=== PATIENT | female | born 1960 | race Hispanic/Latino ===

== ENCOUNTER 2018-02-01 02:55 | Observation (INO) | payer BC, OTHER ==
[2018-02-01 04:20] LABS: Absolute Lymphocytes (CBC) 1.7 K/uL (0.7-4.9); Absolute Monocytes 0.5 K/uL (0.1-1.3); Absolute Neutrophil 4.6 K/uL (1.8-8.0); Basophils % 0.6 % (0-1.3); Eosinophils % 2.9 % (0-4.4); Hematocrit 36.1 % (36.0-45.0); Lymphocytes % 24.5 % (15.3-44.8); MCH 30.2 pg (27.0-35.0); MCV 91.5 fL (80-100); MPV 7.6 fL (7.6-11.3); Monocytes % 7.5 % (3.3-12.3); RBC Red Blood Cell Count 3.94 M/uL (3.86-4.86)
[2018-02-01 04:48] LABS: Bicarbonate 26 mEq/L (21-31); Glucose Level 156 mg/dL (65-120); Lipase 44 U/L (22-51); Potassium 3.6 mEq/L (3.6-5.0); Sodium Level 136 mEq/L (135-145)
[2018-02-01 04:54] LABS: ALT/SGPT 19 IU/L (10-60); AST/SGOT 18 IU/L (10-42); Albumin 4.1 g/dL (3.2-5.5); Alkaline Phosphatase 67 IU/L (42-121); BUN Blood Urea Nitrogen 22 mg/dL (6-20); Bilirubin Direct 0.1 mg/dL (0-0.2); Bilirubin Total 0.5 mg/dL (0.3-1.2); Protein, Total 7.2 g/dL (6.0-8.3)
[2018-02-01] MEDS ORDERED: MORPHINE 10 MG/ML VIAL ONE (05:27)
[2018-02-01] MEDS ORDERED: NA CHLORIDE 0.9% 1,000 ML ONE ×2 (05:27→15:07)
[2018-02-01] MEDS ORDERED: ONDANSETRON 4 MG/2 ML VIAL ONE (05:27)
--- NOTE | 2018-02-01 06:09 | EDPHYS ---
Physician Documentation [facility] Name: Maureen Mariscal Age: 58 yrs Sex: Female : 1960 Arrival Date: 02/01/2018 Time: 03:00 Bed 7 Private MD: ED Physician Chandrakant Garrison HPI: 02/01 06:09 This 58 yrs old Female presents to ER via Ambulatory with complaints of gs Abdominal Pain, Back Pain. 06:09 The patient presents with abdominal pain in the right upper quadrant. Onset: The gs symptoms/episode began/occurred yesterday. The symptoms radiate to right back. Associated signs and symptoms: Pertinent positives: nausea and vomiting. The symptoms are described as sharp. Modifying factors: The symptoms are alleviated by nothing, the symptoms are aggravated by food. Severity of pain: At its worst the pain was moderate in the emergency department the pain is unchanged. The patient has experienced a previous episode, different location but same type when got appy out. Historical: - Allergies: 03:21 No Known Allergies; bb - Home Meds: 03:21 metformin 1,000 mg Oral tab 1 tab 2 times per day [Active]; rosuvastatin 10 mg oral tab bb 1 tab once daily [Active]; Actos 30 mg Oral tab 1 tab once daily [Active]; lisinopril 40 mg Oral tab 1 tab once daily [Active]; Jardiance 10 mg oral tab 1 tab once daily [Active]; - PMHx: 03:21 Diabetes - NIDDM; Hyperlipidemia; Hypertension; bb - PSHx: 03:21 Appendectomy; bb - Immunization history:: Adult Immunizations up to date, Flu vaccine is up to date. - Social history:: The patient lives at home, Smoking status: unknown. ROS: 06:09 All other systems are negative. gs Exam: 06:03 ECG was reviewed by the Attending Physician. gs 06:09 Head/Face: Normocephalic, atraumatic. Eyes: Pupils equal round and reactive to light, gs extra-ocular motions intact. Lids and lashes normal. Conjunctiva and sclera are non-icteric and not injected. Cornea within normal limits. Periorbital areas with no swelling, redness, or edema. ENT: Nares patent. No nasal discharge, no septal abnormalities noted. Tympanic membranes are normal and external auditory canals are clear. Oropharynx with no redness, swelling, or masses, exudates, or evidence of obstruction, uvula midline. Mucous membranes moist. Neck: Trachea midline, no thyromegaly or masses palpated, and no cervical lymphadenopathy. Supple, full range of motion without nuchal rigidity, or vertebral point tenderness. No Meningismus. Chest/axilla: Normal chest wall appearance and motion. Nontender with no deformity. No lesions are appreciated. Cardiovascular: Regular rate and rhythm with a normal S1 and S2. No gallops, murmurs, or rubs. Normal PMI, no JVD. No pulse deficits. Respiratory: Lungs have equal breath sounds bilaterally, clear to auscultation and percussion. No rales, rhonchi or wheezes noted. No increased work of breathing, no retractions or nasal flaring. Back: No spinal tenderness. No costovertebral tenderness. Full range of motion. Skin: Warm, dry with normal turgor. Normal color with no rashes, no lesions, and no evidence of cellulitis. MS/ Extremity: Pulses equal, no cyanosis. Neurovascular intact. Full, normal range of motion. Neuro: Awake and alert, GCS 15, oriented to person, place, time, and situation. Cranial nerves II-XII grossly intact. Motor strength 5/5 in all extremities. Sensory grossly intact. Cerebellar exam normal. Normal gait. 06:09 Constitutional: The patient appears alert, awake. 06:09 Abdomen/GI: Palpation: moderate abdominal tenderness, in the right upper quadrant. Vital Signs: 03:21 BP 134 / 77; Pulse 66; Resp 20 S; Temp 97.8(O); Pulse Ox 100% on R/A; Weight 46.72 kg bb (R); Height 5 ft. 0 in. (152.40 cm) (R); Pain 9/10; 04:52 BP 131 / 70; Pulse 60; Resp 18; Pulse Ox 100% on R/A; tl2 05:54 BP 114 / 63; Pulse 70; Resp 18; Pulse Ox 100% on R/A; tl2 06:57 BP 126 / 68; Pulse 62; Resp 18; Pulse Ox 100% on R/A; tl2 07:47 BP 126 / 68; Pulse 65; Resp 18; Temp 97.8(TE); Pulse Ox 100% on R/A; Pain 0/10; hj 03:21 Body Mass Index 20.12 (46.72 kg, 152.40 cm) bb MDM: 03:29 Patient medically screened. 06:09 Differential diagnosis: bowel obstruction, cholecystitis, pancreatitis, Peptic Ulcer gs Disease. Data reviewed: vital signs, nurses notes. Response to treatment: the patient's symptoms have mildly improved after treatment, and as a result, I will admit patient. Physician consultation: James Curtis MD and will see patient in inpatient room, would like admission per Dr. Marjorie Whalen MD. 02/01 03:32 Order name: Basic Metabolic Panel; Complete Time: 05:04 02/01 03:32 Order name: CBC with Diff; Complete Time: 04:41 02/01 03:32 Order name: Hepatic Function; Complete Time: 05:04 02/01 03:32 Order name: Lipase; Complete Time: 05:04 02/01 03:32 Order name: Urine Microscopic Only 02/01 03:32 Order name: Troponin (emerg Dept Use Only); Complete Time: 04:41 02/01 03:32 Order name: IV Saline Lock; Complete Time: 03:57 02/01 03:32 Order name: CT Stone Protocol 02/01 03:32 Order name: EKG; Complete Time: 03:32 02/01 06:13 Order name: US Abdomen Limited 02/01 06:18 Order name: CONS Physician Consult EDNJ 02/01 03:32 Order name: Labs collected and sent; Complete Time: 03:57 02/01 03:32 Order name: Urine Dipstick-Ancillary (obtain specimen); Complete Time: 06:47 02/01 03:32 Order name: EKG - Nurse/Tech; Complete Time: 03:57 EC:03 Rate is 61 beats/min. Rhythm is regular. MN interval is normal. QRS interval is normal. gs QT interval is normal. T waves are Normal. No ST changes noted. Clinical impression: NSR w/ Non-specific ST/T Changes. Interpreted by me. Administered Medications: 05:30 Drug: NS 0.9% 1000 ml Route: IV; Rate: 1 bolus; Site: right antecubital; ea 07:08 Follow up: IV Status: Completed infusion 05:30 Drug: morphine 4 mg Route: IVP; Site: right antecubital; kassie 07:08 Follow up: Response: No adverse reaction 05:30 Drug: Zofran 4 mg Route: IVP; Site: right antecubital; ea 07:08 Follow up: Response: No adverse reaction hj Disposition: 02/01/18 06:08 Hospitalization ordered by Marjorie Whalen for Inpatient Admission. Preliminary diagnosis is Acute cholecystitis. - Bed requested for Telemetry/MedSurg (Inpatient). - Status is Inpatient Admission. hj - Condition is Stable. - Problem is new. - Symptoms have improved. UTI on Admission? No Signatures: Dispatcher [employer] Santa Bajwa RN Lyndsey Easton RN RN Omar Gayle RN Zainab Walter RN RN tl2 Cristiane Solis RN RN ea Starr, Gregory, MD MD gs
--- NOTE | 2018-02-01 06:09 | ER ---
Nurse's Notes [facility] Name: Maureen Mariscal Age: 58 yrs Sex: Female : 1960 Arrival Date: 02/01/2018 Time: 03:00 Bed 7 Private MD: Diagnosis: Acute cholecystitis Presentation: 02/01 03:17 Presenting complaint: Patient states: she started having right upper abdominal pain bb radiating to the back and the right shoulder since approx 2200 last night pt states she also had an episode of bleeding from the nose and mouth briefly denies vomiting or diarrhea. Transition of care: patient was not received from another setting of care. Onset of symptoms was January 30, 2018. Care prior to arrival: None. 03:17 Method Of Arrival: Ambulatory bb 03:17 Acuity: PEDRO 3 bb Historical: - Allergies: 03:21 No Known Allergies; bb - Home Meds: 03:21 metformin 1,000 mg Oral tab 1 tab 2 times per day [Active]; rosuvastatin 10 mg oral tab bb 1 tab once daily [Active]; Actos 30 mg Oral tab 1 tab once daily [Active]; lisinopril 40 mg Oral tab 1 tab once daily [Active]; Jardiance 10 mg oral tab 1 tab once daily [Active]; - PMHx: 03:21 Diabetes - NIDDM; Hyperlipidemia; Hypertension; bb - PSHx: 03:21 Appendectomy; bb - Immunization history:: Adult Immunizations up to date, Flu vaccine is up to date. - Social history:: The patient lives at home, Smoking status: unknown. Screenin:30 Abuse screen: Denies threats or abuse. Nutritional screening: No deficits noted. tl2 Tuberculosis screening: No symptoms or risk factors identified. Fall Risk None identified. Assessment: 03:30 General: Appears in no apparent distress. uncomfortable, Behavior is calm, cooperative, tl2 appropriate for age. Pain: Complains of pain in epigastric area and right upper quadrant Pain does not radiate. Pain currently is 7 out of 10 on a pain scale. Neuro: Level of Consciousness is awake, alert, obeys commands, Oriented to person, place, time, situation. Cardiovascular: Denies chest pain. Respiratory: Airway is patent Respiratory effort is even, unlabored, Respiratory pattern is regular, symmetrical. GI: Bowel sounds present X 4 quads. Abd is soft Abdomen is tender to palpation in epigastric area and right upper quadrant Reports nausea. : No signs and/or symptoms were reported regarding the genitourinary system. Derm: Skin is pink, warm \T\ dry. 04:30 Reassessment: Patient appears in no apparent distress at this time. Pt requested pain tl2 medication, MD notified. 05:15 Reassessment: Patient and/or family updated on plan of care and expected duration. Pain ea level reassessed. Patient is alert, oriented x 3, equal unlabored respirations, skin warm/dry/pink. 05:30 Reassessment: Patient appears in no apparent distress at this time. Patient and/or tl2 family updated on plan of care and expected duration. Pain level reassessed. Patient is alert, oriented x 3, equal unlabored respirations, skin warm/dry/pink. 06:30 Reassessment: Patient appears in no apparent distress at this time. Patient and/or tl2 family updated on plan of care and expected duration. Pain level reassessed. Patient is alert, oriented x 3, equal unlabored respirations, skin warm/dry/pink. Vital Signs: 03:21 BP 134 / 77; Pulse 66; Resp 20 S; Temp 97.8(O); Pulse Ox 100% on R/A; Weight 46.72 kg bb (R); Height 5 ft. 0 in. (152.40 cm) (R); Pain 9/10; 04:52 BP 131 / 70; Pulse 60; Resp 18; Pulse Ox 100% on R/A; tl2 05:54 BP 114 / 63; Pulse 70; Resp 18; Pulse Ox 100% on R/A; tl2 06:57 BP 126 / 68; Pulse 62; Resp 18; Pulse Ox 100% on R/A; tl2 07:47 BP 126 / 68; Pulse 65; Resp 18; Temp 97.8(TE); Pulse Ox 100% on R/A; Pain 0/10; hj 03:21 Body Mass Index 20.12 (46.72 kg, 152.40 cm) ED Course: 03:00 Patient arrived in ED. do 03:09 Chandrakant Garrison MD is Attending Physician. gs 03:19 Triage completed. bb 03:21 Arm band placed on Patient placed in an exam room, on a stretcher, on pulse oximetry. bb Family accompanied patient. 03:30 Patient has correct armband on for positive identification. Bed in low position. Call tl2 light in reach. Side rails up X 1. Adult w/ patient. 03:30 No provider procedures requiring assistance completed. tl2 03:56 Inserted saline lock: 20 gauge in right antecubital area, using aseptic technique. jb5 Blood collected. 03:57 Basic Metabolic Panel Sent. jb5 03:57 CBC with Diff Sent. jb5 03:57 Hepatic Function Sent. jb5 03:57 Lipase Sent. jb5 03:57 Urine Microscopic Only Sent. jb5 06:08 Marjorie Whalen MD is Hospitalizing Provider. 07:07 Omar Conti, RN is Primary Nurse. hj 07:21 Ultrasound completed. Patient tolerated well. sg3 07:47 Patient admitted, IV remains in place. intact. hj Administered Medications: 05:30 Drug: NS 0.9% 1000 ml Route: IV; Rate: 1 bolus; Site: right antecubital; ea 07:08 Follow up: IV Status: Completed infusion hj 05:30 Drug: morphine 4 mg Route: IVP; Site: right antecubital; ea 07:08 Follow up: Response: No adverse reaction hj 05:30 Drug: Zofran 4 mg Route: IVP; Site: right antecubital; ea 07:08 Follow up: Response: No adverse reaction Outcome: 06:08 Decision to Hospitalize by Provider. 07:46 Admitted to Med/surg accompanied by nurse, family with patient, via wheelchair, room hj 224, with chart, Report called to Barbie Kelly RN 07:46 Condition: stable 07:46 Instructed on the need for admit, Demonstrated understanding of instructions. 08:03 Patient left the ED. Signatures: Lyndsey Ramirez RN RN bb Joaquin, Henry, RN RN Liat Boyer Taylor RN RN tl2 Beatrice Hawkins jb5 Cristiane Solis RN RN ea Starr, Gregory, MD MD Giselle Viveros sg3
--- NOTE | 2018-02-01 06:50 | P.HP ---
Certification for Inpatient Patient admitted to: Inpatient With expected LOS: >2 Midnights Practitioner: I am a practitioner with admitting privileges, knowledge of patient current condition, hospital course, and medical plan of care. Services: Services provided to patient in accordance with Admission requirements found in Title 42 Section 412.3 of the Code of Federal Regulations Patient History Date of Service: 02/01/18 Reason for admission: acute cholecystitis History of Present Illness: Ms Mariscal is a 58 years old woman with history of HTN, DM II, who start last night with abdominal pain. The pain was localized on RUQ, radiated to her right scapular area. Intensity of the pain 8/10. She had this kind of pain in the past , but not as intense as today. No history of fever or chills. She has had nausea and 1 episode of vomiting. She also noticed small amount of nose blooding while was vomiting. Lab work remarkable for normal WBC count, normal liver panel, however, CT abd/pelvis remarkable for gallstones with signs of acute cholecystitis. Allergies No Known Allergies Allergy (Unverified 02/01/18 06:26) - Past Medical/Surgical History -: DM II -: HTN -: appendectomy - Family History Family History: Reviewed- Non-Contributory - Social History Smoking Status: Former smoker Alcohol use: No CD- Drugs: No Place of Residence: Home Review of Systems 10-point ROS is otherwise unremarkable Physical Examination - Physical Exam General: Alert, In no apparent distress HEENT: Atraumatic, PERRLA, Mucous membr. moist/pink, EOMI, Sclerae nonicteric Neck: Supple, 2+ carotid pulse no bruit, No LAD, Without JVD or thyroid abnormality Respiratory: Clear to auscultation bilaterally, Normal air movement Cardiovascular: Regular rate/rhythm, Normal S1 S2 Gastrointestinal: Normal bowel sounds, Tenderness (RUQ) Musculoskeletal: No tenderness Integumentary: No rashes Neurological: Normal speech, Normal strength at 5/5 x4 extr, Normal tone, Normal affect Lymphatics: No axilla or inguinal lymphadenopathy - Studies Laboratory Data (last 24 hrs) 02/01/18 03:49: WBC 7.1, Hgb 11.9 L, Hct 36.1, Plt Count 327 02/01/18 03:49: Sodium 136, Potassium 3.6, BUN 22 H, Creatinine 0.54, Glucose 156 H, Total Bilirubin 0.5, AST 18, ALT 19, Alkaline Phosphatase 67, Lipase 44 Assessment and Plan - Problems (Diagnosis) (1) Acute cholecystitis due to biliary calculus Current Visit: Yes Status: Acute (2) Cholelithiasis Current Visit: Yes Status: Acute Qualifiers: Cholelithiasis location: gallbladder Cholecystitis presence: with cholecystitis Cholecystitis acuity: acute Biliary obstruction: without biliary obstruction Qualified Code(s): K80.00 - Calculus of gallbladder with acute cholecystitis without obstruction (3) Diabetes mellitus Current Visit: Yes Status: Acute Qualifiers: Diabetes mellitus type: type 2 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 US abdomen is pending. There is no laboratory or radiologic signs of biliary obstruction. Will start empiric antibiotic coverage, Dr Curtis will see the patient this morning. Will keep her NPO, start IV fluids, and pain medications. SSI for blood sugar control. - Advance Directives Does patient have a Living Will: No Does patient have a Durable POA for Healthcare: No - Code Status/Comfort Care Code Status Assessed: Yes Code Status: Full Code
[2018-02-01] MEDS ORDERED: KETOROLAC 30 MG/ML INJ IV PRN (07:14)
[2018-02-01] MEDS ORDERED: ACETAMINOPHEN 500 MG TAB PO PRN (07:14)
[2018-02-01] MEDS ORDERED: ONDANSETRON 4 MG/2 ML VIAL IV PRN (07:14)
--- NOTE | 2018-02-01 08:24 | RAD REPORT ---
EXAM DESCRIPTION: US - Abdomen Exam Limited - 02/01/2018 7:46 am CLINICAL HISTORY: Right upper quadrant pain COMPARISON: CT February 01 FINDINGS: Single large 3 centimeter gallstone is identified. Mild gallbladder wall thickening is see n. No other stones or sludge identifiable. No pericholecystic fluid seen. No intrahepatic biliary dilatation. Common bile duct is as large as 10-11 mm. Most of the extrahepati c biliary tree is smaller in diameter. No duct stone identified. The duct in the head of the pancreas region is not optimally visualized. IMPRESSION: Single large 3 cm gallstone with gallbladder wall thickening. No pericholecystic fluid. Extrahepatic biliary tree may be as large as 10-11 mm. Duct is not fully visualized and duct stone co uld be obscured near the head of the pancreas. If there are biliary obstructive clinical or laboratory findings, follow-up ERCP or MRCP may be helpf ul.
--- NOTE | 2018-02-01 08:28 | RAD REPORT ---
EXAM DESCRIPTION: CT - Stone Protocol - 02/01/2018 7:08 am CLINICAL HISTORY: Right upper quadrant pain radiating to the back, hypertension, prior appendectomy. A preliminary written report was provided at the time of the study, and the report was reviewed prio r to final dictation. COMPARISON: None. TECHNIQUE: Axial 5 mm thick images were obtained without oral or IV contrast. The [id number] span s the entirety of the system including uppermost abdomen and lung bases. All CT scans are performed using dose optimization technique as appropriate and may include automated exposure control or mA/KV adjustment according to patient size. FINDINGS: No hydronephrosis is present and no obstructing ureteral calculi. No suspicious renal mass es. Isodense masses and pyelonephritis are not excluded on a stone protocol CT scan. No urinary bladd er suspicious finding. Uterus and ovaries show no suspicious findings. Imaged portions of the liver, spleen and pancreas show no suspicious findings on non-contrast imaging . A large gallstone is present 3 cm in size near the neck of the gallbladder. Additional stones and s ludge can be occult. No pericholecystic fluid present though the gallbladder wall does appear to be s lightly thickened. No biliary tree dilatation identifiable on this study. No significant adrenal find ing. No suspicious bowel findings. Moderate stool volume in the nondilated colon. Appendectomy clips are p resent. No hernia, mass or bulky lymphadenopathy noted. No free air, free fluid or inflammatory stranding. No significant bony abnormality. IMPRESSION: Large gallstone, suspected gallbladder wall thickening. Correlation is needed with clini jessica findings for acute cholecystitis. No biliary tree or pancreatic abnormality seen. Isodense masses and pyelonephritis are not excluded on stone protocol technique.
[2018-02-01] MEDS: NA CHLORIDE 0.9% 1,000 ML IV SCH ×2 (08:40→16:45)
[2018-02-01] MEDS ORDERED: METRONIDAZOLE 500mg IVPB 500 MG/100 ML BAG IV SCH (09:00)
[2018-02-01] MEDS ORDERED: CIPROFLOXACIN 400mg IV 400 MG/200 ML BAG IV SCH (09:00)
[2018-02-01] MEDS: INSULIN -REGULAR HUMAN 50 UNIT/0.5 ML ML SQ SCH ×3 (12:00→20:43)
--- NOTE | 2018-02-01 13:44 | P.HP ---
Date of Service: 02/01/18 PC: This 4-year-old female presents emergency room with severe right upper quadrant abdominal pain for diagnosis and treatment. HPC: Patient has been having intermittent abdominal pain for the last few months. Pains have intensified. Last night had a severe attack causing intractable vomiting. Pain has eased now that she has received some morphine. PMH: Diabetes, hypertension PSHx: Previous appendectomy SOC: No known allergies SYS REVIEW: No cough, wheeze, shortness of breath. No chest pain or palpitations. Denies any urinary complaints O/E awake alert vital signs are stable HEENT: Not jaundiced Chest: Air entry equal bilaterally ABD: Mild right upper quadrant tenderness LOCO: Intact DATA: Has documented gallstone IMPRESSION: Acute on chronic cholecystitis with cholelithiasis PLAN: I will take her to the operating room for laparoscopic possible open cholecystectomy. The risks of this procedure have been discussed. The possibility of bleeding, infection, injury to bile ducts blood vessels and intestines has been described. The possible need for an open and/or further surgeries and procedures was discussed. She and her family understand, want to proceed. OR crew has been called.
[2018-02-01] MEDS ORDERED: SUCCINYLCHOLINE 20 MG/ML (10 ML) IV ONE (14:28)
[2018-02-01] MEDS ORDERED: MIDAZOLAM HCL 2 MG/2 ML INJ ONE (14:31)
[2018-02-01] MEDS ORDERED: PROPOFOL 200 MG/20 ML VIAL IV ONE (14:31)
[2018-02-01] MEDS ORDERED: ROCURONIUM 50 MG/5 ML VIAL IV ONE (14:31)
[2018-02-01] MEDS ORDERED: FENTANYL CITR 100 MCG/2 ML ONE (14:31)
[2018-02-01] MEDS ORDERED: Phenylephrine HCl 10 MG/ML 1 ML VIAL ONE (14:53)
[2018-02-01] MEDS ORDERED: NEOSTIGMINE 1 MG/ML -5 ML SYRINGE ONE (15:34)
[2018-02-01] MEDS ORDERED: GLYCOPYRROLATE 0.2 MG/ML SYR ONE (15:34)
[2018-02-01] MEDS: MORPHINE 4 MG/ML SYR ONE ×2 (15:52→16:00)
--- NOTE | 2018-02-01 15:52 | P.OP ---
Preoperative diagnosis: Acute cholecystitis with cholelithiasis Postoperative diagnosis: The same Primary procedure: Upper scopic cholecystectomy Secondary procedure: Cholangiogram Anesthesia: Genera Estimated blood loss: Less than 10 cc Specimen: 1 gallbladder and contents Operative Technique: The patient brought to the operating room and placed supine on the table. After the induction of adequate general endotracheal anesthesia, the area of the abdomen was prepped with a DuraPrep solution, and she was draped in usual aseptic manner. A subumbilical incision was made. This was brought down through the skin and subcutaneous tissue. The tissue port the peritoneal in created pneumoperitoneum to approximately 10 mm of mercury. Under direct vision a 5 mm trocar was placed in the upper midline, and 2 other 5 mm trocars on the right side of the abdomen. The patient was then placed in reverse Trendelenburg and rolled to the left. We could visualize right upper quadrant. AE acutely inflamed edematous gallbladder was noted. The contents were aspirated to allow us to place a grasper on the fundus. Another was placed down by Saeid's pouch. Applying lateral traction we were able to dissect out and expose the cystic duct and artery. Having obtained the critical view, a clip was placed between the gallbladder and the cystic duct. An opening was made into the cystic duct through which we obtained an intraoperative cholangiogram. The cholangiogram demonstrated some dilation of the hepatic duct, but there was good flow of contrast into the duodenum no filling defects were seen. The cholangiogram was noted to be in the cystic duct. The catheter was now removed. Clips were placed the distal portion of the cystic duct which was now transected. The cystic artery was identified. Once again it was clipped and divided. This edematous gallbladder was now dissected free from the liver bed, placed into an Endo-Catch, and brought out through the umbilical trocar site. Was now inspected to ensure adequate hemostasis. With position the umbilical vessel defect was approximated using 2 absorbable sutures placed using the Endo Close. The irrigating fluid was aspirated from the peritoneal cavity. The pneumoperitoneum was now collapsed, trocars removed, the sutures tied, and alexys applied to the skin. At the end of the procedure the patient was in a stable condition when sent to the recovery room. Needle sponge instrument count were correct. No drains were placed. Complications: None Transferred to: Recovery Room Condition: Good
--- NOTE | 2018-02-01 16:01 | RAD REPORT ---
EXAM DESCRIPTION: RAD - Cholangiogram Oper-Xray Or - 02/01/2018 3:52 pm FINDINGS: Multiple portable C-arm views were obtained during fluoroscopic assisted intraoperative ch olangiogram. Contrast is seen pooling in the gallbladder fossa. Reason for the extraluminal contrast is not certai n. This could be from incomplete occlusion of the cystic duct during injection. No specific finding t o indicate bile duct or cystic duct injury. Final images show prominent extrahepatic biliary tree. No intraluminal filling defect confirmed. No stricture or mass.
[2018-02-01] MEDS ORDERED: MORPHINE 4 MG/ML SYR ONE (16:10)
[2018-02-01] MEDS ORDERED: KETOROLAC 30 MG/ML INJ ONE (16:11)
[2018-02-01] MEDS ORDERED: MORPHINE 4 MG/ML SYR IV PRN (16:18)
[2018-02-01] MEDS: HYDROCODONE/APAP 7.5/325 MG TAB PO PRN (16:45)
[2018-02-01] MEDS ORDERED: ROSUVASTATIN 10 MG TAB PO SCH (21:00)
--- NOTE | 2018-02-01 22:31 | EKG ---
Test Date: 2018-02-01 Test Time: 03:53:52 Clam Grower: MERNA MEASUREMENT RESULTS: Intervals: Rate: 61 IA: 166 QRSD: 72 QT: 392 QTc: 394 [place]: P: 15 IA: 166 QRS: 19 T: 32 INTERPRETIVE STATEMENTS: Normal sinus rhythm Low voltage QRS Borderline ECG No previous ECG available for comparison Electronically Signed On 02-01-18 22:30:39 CDT by Samir Méndez
[2018-02-02] MEDS: NA CHLORIDE 0.9% 1,000 ML IV SCH (03:29)
[2018-02-02] MEDS: HYDROCODONE/APAP 7.5/325 MG TAB PO PRN (05:13)
[2018-02-02] MEDS: INSULIN -REGULAR HUMAN 50 UNIT/0.5 ML ML SQ SCH ×2 (07:30→11:30)
[2018-02-02] MEDS ORDERED: LISINOPRIL 20 MG TAB PO SCH (09:00)
[2018-02-02] MEDS ORDERED: HOME MED 1 EA UNK (Lisinopril [Lisinopril] 40 MG) PO SCH (09:00)
--- NOTE | 2018-02-02 11:13 | P.SSS ---
Patient History Date of Service: 02/02/18 Reason for admission: acute cholecystitis History of Present Illness: Ms Mariscal is a 58 years old woman with history of HTN, DM II, who start last night with abdominal pain. The pain was localized on RUQ, radiated to her right scapular area. Intensity of the pain 8/10. She had this kind of pain in the past , but not as intense as today. No history of fever or chills. She has had nausea and 1 episode of vomiting. She also noticed small amount of nose blooding while was vomiting. Lab work remarkable for normal WBC count, normal liver panel, however, CT abd/pelvis remarkable for gallstones with signs of acute cholecystitis. Allergies No Known Allergies Allergy (Unverified 02/01/18 07:19) Home Medications: Empagliflozin [Jardiance] 10 mg PO DAILY 02/01/18 Lisinopril 40 mg PO DAILY 02/01/18 Metformin ER [Glucophage ER*] 1,000 mg PO DAILY 02/01/18 Pioglitazone [Actos*] 30 mg PO DAILY 02/01/18 Rosuvastatin Calcium 10 mg PO DAILY 02/01/18 Hydrocodone 7.5/APAP 325 [[place] 7.5/325 mg*] 1 tab PO Q4H PRN #20 tab 02/02/18 - Past Medical/Surgical History Has patient received pneumonia vaccine in the past: No Diabetic: Yes -: DM II -: HTN -: appendectomy - Family History Family History: Reviewed- Non-Contributory - Family History Father -: Hypertension - Social History Smoking Status: Former smoker Alcohol use: No CD- Drugs: No Caffeine use: No Place of Residence: Home Review of Systems 10-point ROS is otherwise unremarkable Physical Examination - Vital Signs Temperature: 98.4 F Blood Pressure: 99/48 Pulse: 64 Respirations: 18 Pulse Ox (%): 98 - Physical Exam General: Alert, In no apparent distress HEENT: Atraumatic, PERRLA, Mucous membr. moist/pink, EOMI, Sclerae nonicteric Neck: Supple, 2+ carotid pulse no bruit, No LAD, Without JVD or thyroid abnormality Respiratory: Clear to auscultation bilaterally, Normal air movement Cardiovascular: Regular rate/rhythm, Normal S1 S2 Gastrointestinal: Normal bowel sounds, No tenderness Musculoskeletal: No tenderness Integumentary: No rashes Neurological: Normal gait, Normal speech, Normal strength at 5/5 x4 extr, Normal tone, Normal affect Lymphatics: No axilla or inguinal lymphadenopathy - Diagnosis (Problem(s)) (1) Acute cholecystitis due to biliary calculus Onset Date: 02/02/18 Current Visit: Yes Status: Acute Plan: S/P Lap [place] with Dr Curtis. Doing well. No c/o. DC today (2) Diabetes mellitus Onset Date: 02/02/18 Current Visit: Yes Status: Acute Qualifiers: Diabetes mellitus type: type 2 Diabetes mellitus skilled nursing insulin use: without sales support manager use Diabetes mellitus complication status: with unspecified complications Qualified Code(s): E11.8 - Type 2 diabetes mellitus with unspecified complications (3) HTN (hypertension) Onset Date: 02/02/18 Current Visit: Yes Status: Acute Qualifiers: Hypertension type: essential hypertension Qualified Code(s): I10 - Essential (primary) hypertension Treatment Summary: Patient initially was admitted to the hospital for acute cholecystitis. Surgery was consulted who operated on patient patient had a lap cholecystectomy. Today patient has been doing well no complaints to offer has had bowel movement and is tolerating her diet well. Patient will thus be discharged home under stable condition. Patient will have a prescription for [place] for pain to go home with. - Disposition Disposition: ROUTINE DISCHARGE Condition: GOOD Patient Discharge Instructions: Please f/u with Dr Curtis in 1 week post discharge. New medication. [place] 7.5mg for pain as needed q4h Diet: Regular Activity: Ad maritza
== END 2018-02-02 13:24 | disposition home or self-care (01) ==
LOC: ER 02:55 → INTOOBSV 06:17 → ERHOLD 06:17 → 2ND 07:47
PROVIDERS: ADMIT Internal Medicine; ATTEND Internal Medicine
PROC: BF00YZZ Plain Radiography of Bile Ducts using Other Contrast (ICD-10-PCS; 2018-02-01)
PROC: 0FT44ZZ Resection of Gallbladder, Percutaneous Endoscopic Approach (ICD-10-PCS; principal; 2018-02-01 14:30)
DX: K80.00 Calculus of gallbladder with acute cholecystitis without obstruction (principal); I10 Essential (primary) hypertension; E11.9 Type 2 diabetes mellitus without complications; Z87.891 Personal history of nicotine dependence
CPT/HCPCS: 36415; 74176; 74300; 76377; 76705; 80048; 80076; 82962; 83690; 84484; 85025; 88304; 88305; 93005; 96361; 96374; 96375; 99285; J0330; J0744; J2250; J2370; J2405; J2710; J3010; J7030; Q9967